=== PATIENT | female | born 1945 | race Caucasian/White ===

== ENCOUNTER 2016-05-09 16:18 | Emergency (ER) | payer BC, OTHER ==
[2016-05-09 16:23] VITALS: BP 116/60; PULSE 72; TEMP 98.4; BMI 33.3
[2016-05-09] MEDS ORDERED: KETOROLAC TROMETHAMINE 30 MG/1 ML VIAL ONE (17:01)
[2016-05-09] MEDS ORDERED: CYCLOBENZAPRINE HCL 10 MG TABLET (FP) ONE (17:01)
[2016-05-09] MEDS ORDERED: KETOROLAC TROMETHAMINE 30 MG/1 ML VIAL IM ONE (17:01)
[2016-05-09] MEDS ORDERED: CYCLOBENZAPRINE HCL 10 MG TABLET (FP) PO ONE (17:02)
--- NOTE | 2016-05-09 17:12 | PDOC ---
History of Present Illness - General Chief Complaint: Pain, Acute Stated Complaint: NECK PAIN/RT ARM PAIN Time Seen by Provider: 05/09/16 16:37 - History of Present Illness Initial Comments: 05/09/16 17:03 CHIEF COMPLAINT: neck pain HISTORY OF PRESENT ILLNESS: 71 yo F with hx of HTN presents to fast track with pain to the right side of neck x 2 days. 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 She states that initially she just felt pain to her right neck/shoulder but now the pain is radiating down her arm. She denies any chest pain, shortness of breath, or any change in sensation to her left arm. No recent travel or sick contacts. PAST MEDICAL HISTORY: as per HPI FAMILY HISTORY: Denies SOCIAL HISTORY: Denies tobacco, alcohol, illicit drug use. ALLERGIES: No known drug allergies REVIEW OF SYSTEMS General/Constitutional: Denies fever or chills. Denies weakness, weight change. HEENT: Denies change in vision. Denies ear pain or discharge. Denies sore throat. Cardiovascular: Denies chest pain or shortness of breath. Respiratory: Denies cough, wheezing, or hemoptysis. Gastrointestinal: Denies nausea, vomiting, diarrhea or constipation. Denies rectal bleeding. Genitourinary: Denies dysuria, frequency, or change in urination. Musculoskeletal: Pain to R neck. Denies joint or muscle swelling or pain. Denies neck or back pain. Skin and breasts: Denies rash or easy bruising. Neurologic: Denies headache, vertigo, loss of consciousness, or loss of sensation. PHYSICAL EXAM General Appearance: Well-appearing, appropriately dressed. No apparent distress. HEENT: EOMI, PERRLA. No conjunctival pallor. No photophobia, scleral icterus. Neck: Reproducible, marked tenderness over R rhomboid. Pain elicited when turning head to R. No tenderness to cervical spine. Supple. Trachea midline. No carotid bruit, stridor, lymphadenopathy, or thyromegaly. Respiratory/Chest: Lungs CTAB. Cardiovascular: RRR. S1, S2. Musculoskeletal/Extremities: No tenderness to thoracic or lumbar spine. Normal inspection. FROM of all extremities, normal capillary refill. Pelvis Stable. No CVA tenderness. No tenderness to extremities, pedal edema, swelling, erythema or deformity. Integumentary: Appropriate color, dry, warm. No cyanosis, erythema, jaundice or rash Neurologic: Fully oriented, alert. Appropriate mood/affect. No appreciable EOM palsy, facial droop or sensory deficit. 05/09/16 17:19 Past History - Past Medical History Allergies/Adverse Reactions: Allergies Allergy/AdvReac Type Severity Reaction Status Date / Time No Known Allergies Allergy Verified 05/09/16 16:23 Home Medications: Ambulatory Orders Aspirin [ASA -] 81 mg PO DAILY 08/05/15 Clonidine HCl [Catapres] 0.3 mg PO BID 08/05/15 Losartan Potassium 100 mg PO DAILY 08/05/15 Meloxicam [Mobic] 15 mg PO DAILY 08/05/15 Nifedipine [Nifedipine ER] 60 mg PO BID 08/05/15 Spironolactone 25 mg PO DAILY 08/05/15 Diazepam [Valium] 2 mg PO HS PRN #7 tablet MDD 1 05/09/16 Naproxen 250 mg PO BID #14 tablet 05/09/16 HTN: Yes - Surgical History Appendectomy: Yes - Immunization History Immunization Up to Date: Yes - Psycho/Social/Smoking Cessation Hx Anxiety: No Suicidal Ideation: No Smoking History: Never smoked Hx Alcohol Use: Yes (RARE) Drug/Substance Use Hx: No Substance Use Type: None *Physical Exam - Vital Signs Last Vital Signs Temp Pulse Resp BP Pulse Ox 98.4 F 72 18 116/60 95 05/09/16 16:20 05/09/16 16:20 05/09/16 16:20 05/09/16 16:20 05/09/16 16:20 Medical Decision Making - Medical Decision Making 05/09/16 17:24 71 yo F with hx of HTN presents to ED with R neck pain. -30 mg Toradol -5 mg Flexeril Patient reassessed. Reports that her pain has decreased significantly and she is ready to go home. Scripts for 2 mg valium po hs and 250 mg naproxen po bid sent to pharm. Advised patient to take medications as directed and to f/u with orthopedics if discomfort persist. Advised patient of signs and symptoms for return to ER; patient verbalized understanding and agrees to plan. *DC/Admit/Observation/Transfer Diagnosis at time of Disposition: Muscle spasm - Discharge Dispostion Disposition: HOME Condition at time of disposition: Improved Admit: No - Prescriptions Prescriptions: Naproxen 250 mg PO BID #14 tablet Diazepam [Valium] 2 mg PO HS PRN #7 tablet MDD 1 PRN Reason: Muscle Spasms - Referrals Referrals: Wilner Aguilar MD [Primary Care Provider] - Сергей Mendiola MD [Staff Physician] - - Patient Instructions Printed Discharge Instructions: DI for Cervical Muscle Strain Additional Instructions: Please take medications as prescribed. Do not drive or operate machinery while taking cyclobenzaprine. As discussed, if your symptoms persist past 2-3 days, please follow up with Dr. Mendiola. If you experience any chest pain, shortness of breath, palpitations, abdominal pain, nausea, sweating, or any new or worsening symptoms, please return to the ER.
== END 2016-05-09 18:15 | disposition home or self-care (01) ==
LOC: JERFT 16:18
PROC: 3E0233Z Introduction of Anti-inflammatory into Muscle, Percutaneous Approach (ICD-10-PCS; principal; 2016-05-09)
DX: M62.838 Other muscle spasm (principal); X50.3XXA Overexertion from repetitive movements, initial encounter; Y93.89 Activity, other specified; Y92.89 Other specified places as the place of occurrence of the external cause; Y99.0 Civilian activity done for income or pay; I10 Essential (primary) hypertension
CPT/HCPCS: 99281-25

== ENCOUNTER 2016-07-14 08:47 | Inpatient (IN) | payer BC, OTHER ==
[2016-07-02 12:26] VITALS: BMI 33.6
--- NOTE | 2016-07-14 07:50 | HP ---
Satellite [facility] - Chief Complaint Chief Complaint: left knee pain - Past Medical History Allergies/Adverse Reactions: Allergies Allergy/AdvReac Type Severity Reaction Status Date / Time No Known Drug Allergies Allergy Verified 07/02/16 12:11 - Current Medications Current Medications: Home Medications Medication Instructions Recorded Clonidine HCl [Catapres] 0.15 mg PO BID 08/05/15 Losartan Potassium 100 mg PO DAILY 08/05/15 Nifedipine [Nifedipine ER] 60 mg PO BID 08/05/15 Spironolactone 25 mg PO HS 08/05/15 Aspirin [Ecotrin] 81 mg PO DAILY 07/02/16 Cholecalciferol (Vitamin D3) 1,000 unit PO DAILY 07/02/16 [Vitamin D3 -] Duloxetine HCl [Cymbalta] 30 mg PO HS 07/02/16 Multivitamin/Iron/Folic Acid 1 each PO DAILY 07/02/16 [Centrum Women Tablet] Nebivolol [Bystolic -] 5 mg PO HS 07/02/16 Nitrofurantoin Monohyd/M-Cryst 100 mg PO BID 07/02/16 [Macrobid -] Satellite Physical Exam - Physical Examination General Appearance: Well Nourished, Well Developed, Alert & Oriented x3 ENT: Clear Lung: Normal air movement Heart: Regular rate & rhythm Extremities: Other (left knee- + swelling, + ttp, decr rom, nvi xrays show severe tricompartmental djd) Neurological: Intact, Alert, Oriented Satellite Impression/Plan - Impression/Plan Impression: left knee djd Operative Procedure: left ned tkr Date to be Performed: 07/14/16
[2016-07-14] MEDS ORDERED: CELECOXIB 200 MG CAPSULE PO ONE (09:14)
[2016-07-14] MEDS ORDERED: GABAPENTIN 300 MG CAPSULE (FP) PO ONE (09:14)
[2016-07-14] MEDS ORDERED: TRANEXAMIC ACID 1000 MG/10 ML VIAL IVPUSH ONE (09:14)
[2016-07-14] MEDS ORDERED: oxyCODONE HCL 10 MG SUSTAINED ACTING TABLET PO ONE (09:14)
[2016-07-14] MEDS ORDERED: CEFAZOLIN 2 GM in DEXTROSE 5%-WATER - 50 ML IVPB ONE (09:14)
[2016-07-14] MEDS ORDERED: ROPIVACAINE HCL 0.5% 30ML VIAL ONE (11:04)
[2016-07-14] MEDS ORDERED: MIDAZOLAM HCL 2 MG/2 ML SINGLE DOSE VIAL ONE (11:04)
[2016-07-14] MEDS ORDERED: DEXAMETHASONE SOD PHOSPHATE/PF 10 MG/ML SDV ONE (11:05)
[2016-07-14] MEDS ORDERED: ceFAZolin SODIUM 1 GM VIAL ONE ×2 (11:51→13:02)
[2016-07-14] MEDS ORDERED: VANCOMYCIN 1,000 MG VIAL (RESTRICTED TO ID ONLY) ONE (11:51)
[2016-07-14] MEDS ORDERED: TRANEXAMIC ACID 1000 MG/10 ML VIAL ONE (13:02)
[2016-07-14] MEDS ORDERED: ONDANSETRON 4 MG/2 ML VIAL ONE (13:14)
[2016-07-14] MEDS ORDERED: ROPIVACAINE 0.2% 400ML 400 ML ML NR ONE (14:02)
[2016-07-14] MEDS ORDERED: oxyCODONE HCL 5 MG TABLET PO PRN (14:02)
[2016-07-14] MEDS ORDERED: VANCOMYCIN 1,000 MG VIAL (RESTRICTED TO ID ONLY) IVPB ONE (14:21)
[2016-07-14] MEDS ORDERED: ONDANSETRON 4 MG/2 ML VIAL IVPB PRN (14:44)
[2016-07-14] MEDS ORDERED: MAGNESIUM HYDROX 2400MG/30ML ORAL SUSPENSION 30 ML CUP PO PRN (14:44)
[2016-07-14] MEDS ORDERED: MAG HYDROX/AL HYDROX/SIMETH 30 ML UNIT-DOSE CUP PO PRN (14:44)
[2016-07-14] MEDS ORDERED: LACTATED RINGERS SOLUTION 1,000 ML IV SCH (14:45)
--- NOTE | 2016-07-14 14:51 | OP ---
Operative Note - Note: Operative Date: 07/14/16 (jen) Pre-Operative Diagnosis: left knee djd Operation: left ned tkr Post-Operative Diagnosis: Same as Pre-op Surgeon: Сергей Mendiola Health Advocate: Abdirashid Cardona Anesthesiologist/HOT DIE PRESS OPERATOR: Radha Robins Anesthesia: Spinal, Local Specimens Removed: bone fragments Estimated Blood Loss (mls): 50 (tourniquet) Operative Report Dictated: Yes
[2016-07-14] MEDS ORDERED: ACETAMINOPHEN 325 MG TABLET (FP) ONE (15:37)
[2016-07-14] MEDS: ACETAMINOPHEN 325 MG TABLET (FP) PO SCH ×2 (15:45→15:55)
[2016-07-14] MEDS: oxyCODONE HCL 5 MG TABLET PO PRN ×3 (17:08→21:47)
--- NOTE | 2016-07-14 18:18 | SPEC ---
DATE OF SURGERY: 07/14/2016 OPERATION: Left total knee replacement with robotic-assisted navigation (MAKOplasty). PREOPERATIVE DIAGNOSIS: Degenerative joint disease, left knee. POSTOPERATIVE DIAGNOSIS: Degenerative joint disease, left knee. SURGEON: Сергей Mendiola M.D. TAKE OFF WORKER: Mikel Jimenez ANESTHESIA: Regional and spinal. CLOSURE: A Triathlon knee system with a 3 femur, a 3 tibia, a 9 polyethylene, a 35 patella. A number 1 Vicryl fascia, 0 and 2-0 for subcutaneous, 3-0 Monocryl subcuticular with skin glue for skin, 4-0 undyed Vicryl for pin sites. ESTIMATED BLOOD LOSS: Negligible. TOURNIQUET TIME: Approximately 75 minutes. COMPLICATIONS: None CONDITION: To recovery room in stable condition. DESCRIPTION OF PROCEDURE: Patient was taken to the operating room on July 14, 2016. Regional and spinal anesthesia were administered by the anesthesiologist. IV antibiotics and TXA were administered prophylactically prior to the case. A well-padded pneumatic tourniquet was placed on the left proximal thigh. The left lower extremity was prepped and draped in the usual sterile fashion. An approximately 12-cm midline incision centered over the patella was incised. Hemostasis was achieved with Bovie cautery. Sharp dissection was carried down to the level of the extensor mechanism the procedure. The medial parapatellar arthrotomy was then performed. The patella was inverted and the knee was flexed up to 90 degrees. Subperiosteal dissection was performed on the anteromedial proximal tibia until the knee was able to be brought forward. This was facilitated by taking the ACL, the PCL, and the medial and lateral menisci. A checkpoint was malleted into the medial femoral condyle and into the anteromedial proximal tibia. Through two small stab incisions in the mid femur and two in the mid tibia, two bicortical pins were drilled, achieving excellent height. Two of these pins were attached to the navigation arrays. The knee was then registered with the navigation device by rotating the hip to ascertain the center of rotation of the hip with points on both the medial and lateral malleoli and multiple points on both the femur and on the tibia. Excellent registration was confirmed by "popping the bubbles". At this time, the osteophytes on the edges of the proximal tibia both medially and laterally, as well as on the medial lateral femoral condyles underneath the collateral ligaments were debrided. The knee was stressed in extension and in flexion to confirm good gaps. The virtual positions of the components were then optimized in order to have a balanced knee, both in extension and in 90 degrees of flexion. The sizes of the components were also optimized to get good coverage over both the tibia and the femur and to produce equal gaps in extension and flexion with the appropriate amount of external rotation of the femur, the appropriate amount of flexion of the femoral component and the appropriate slope on the tibial component. At this time, the robot was brought into the field and registered. The robot was used to cut the proximal tibia and to make all the cuts on the distal femur. The bone was then removed. A spacer block in extension and flexion was used to confirm equal balancing of the component in both extension and 90 degrees of flexion. The box for the posterior cruciate sacrificing component was then performed and a trial component on the femur and tibia was applied. The femoral component was clipped into place with the appropriate external rotation. This was confirmed by the navigation device, ensuring the appropriate position of the tibial component on the proximal tibia. The patella was calipered for thickness and osteotomized at the appropriate level. A lollipop was used to drill the three lugholes in the patella and then a trial component was applied. The knee was taken through a range of motion and found to have excellent tracking of the patella from full extension to full flexion, with good stability, varus/valgus throughout range of motion. The trial components were then removed. Before removing the tibial tray, the keyhole was made. The knee was then thoroughly irrigated with antibiotic irrigation. The real components were then cemented in, using modern generation cement techniques with antibiotic cement and pressurization. After the cement was hardened, the knee was thoroughly inspected to remove all excess cement. The real polyethylene component was then clipped into place. Again, range of motion, stability and tracking were found to be excellent throughout. The knee was then pulse antibiotic irrigated and dried. Vancomycin powder was placed into the knee. The checkpoints were removed. The medial parapatellar arthrotomy was then closed using number 1 Vicryl interrupted suture. The knee was again taken through range of motion and found to have no undue tension on the repair and good tracking throughout. The subcutaneous was closed with 0 and 2-0 Vicryl and 3-0 Monocryl subcuticular for skin with skin glue. The pins were removed in the femur and the tibia and pulse antibiotic irrigated and closed with 4-0 undyed Vicryl. Sterile Aquacel dressing followed by a Fleming dressing was applied. The tourniquet was then deflated. One more dose of TXA was administered at the end of the case. The patient was awakened from anesthesia and transferred to the recovery room in stable condition. X-rays revealed good position of the components. There were no complications. Estimated blood loss was negligible. Total tourniquet time was approximately 75 minutes. Jennifer [id number]
[2016-07-14] MEDS: CEFAZOLIN 2 GM/D5W 50 ML IVPB SCH (20:16)
[2016-07-14] MEDS: oxyCODONE HCL 10 MG SUSTAINED ACTING TABLET PO SCH ×2 (21:35→21:46)
[2016-07-14] MEDS: DULoxetine HCL 30 MG CAPSULE.DR (FP) PO SCH ×2 (21:39→21:47)
[2016-07-14] MEDS: NEBIVOLOL 5 MG TABLET (FP) PO SCH (21:47)
[2016-07-14] MEDS: SPIRONOLACTONE 25 MG TABLET (FP) PO SCH (21:48)
[2016-07-14] MEDS: SENNOSIDES/DOCUSATE COMBO (SENNA PLUS) TABLET (UD) PO SCH (21:48)
[2016-07-14] MEDS: GABAPENTIN 300 MG CAPSULE (FP) PO SCH (21:48)
[2016-07-14] MEDS ORDERED: CLONIDINE HCL 0.15 MG PO SCH (22:00)
[2016-07-14] MEDS ORDERED: PATIENT'S OWN MEDICATION (NON-FORMULARY) (Nifedipine [Nifedipine Er] 60 MG) PO SCH (22:00)
[2016-07-15] MEDS: NIFEdipine E.R 60 MG TABLET (UD) PO SCH ×3 (00:10→21:44)
[2016-07-15] MEDS: cloNIDine HCL 0.1 MG TABLET PO SCH ×3 (00:10→21:43)
[2016-07-15] MEDS: CEFAZOLIN 2 GM/D5W 50 ML IVPB SCH (04:01)
[2016-07-15] MEDS: ACETAMINOPHEN 325 MG TABLET (FP) PO SCH ×4 (04:02→20:23)
[2016-07-15] MEDS: oxyCODONE HCL 5 MG TABLET PO PRN (05:37)
[2016-07-15] MEDS: ASPIRIN 325 MG TABLET PO SCH (07:50)
--- NOTE | 2016-07-15 08:04 | PN ---
Progress Note (short form) - Note Progress Note: Ortho Pt seen and examined s/p left ned tkr pod #1 Selected Entries 07/15/16 06:00 Temperature 98.3 F Pulse Rate 60 Respiratory 19 Rate Blood Pressure 126/50 dressing c/d/i, calf soft, nt rom 0-60, nvi a/p PT dvt ppx pain control d/c home tomorrow if stable
[2016-07-15 08:28] LABS: MCH 30.2 pg (25.7-33.7); MCHC 34.3 g/dl (32.0-36.0); MEAN PLT VOLUME 9.6 fl (7.5-11.1); PLATELET COUNT 215 K/MM3 (134-434); RDW 12.2 % (11.6-15.6); WHITE BLOOD COUNT 12.3 K/mm3 (4.0-10.8)
[2016-07-15] MEDS: LOSARTAN POTASSIUM 50 MG TABLET (FP) PO SCH (09:14)
[2016-07-15] MEDS: SENNOSIDES/DOCUSATE COMBO (SENNA PLUS) TABLET (UD) PO SCH ×2 (09:15→21:44)
[2016-07-15] MEDS: MULTIVITAMINS (DAILY MVI) TABLET (FP) PO SCH (09:15)
[2016-07-15] MEDS: oxyCODONE HCL 10 MG SUSTAINED ACTING TABLET PO SCH ×2 (09:16→21:44)
[2016-07-15] MEDS: PANTOPRAZOLE 40 MG TABLET (FP) PO SCH (09:16)
[2016-07-15] MEDS: GABAPENTIN 300 MG CAPSULE (FP) PO SCH ×2 (09:16→21:44)
[2016-07-15] MEDS ORDERED: PATIENT'S OWN MEDICATION (NON-FORMULARY) (Multivitamin/Iron/Folic Acid [Centrum Women Tabl PO SCH (10:00)
[2016-07-15] MEDS ORDERED: MULTIVITAMINS (DAILY MVI) TABLET (FP) PO SCH (10:00)
[2016-07-15] MEDS ORDERED: cloNIDine HCL 0.1 MG TABLET PO SCH (10:00)
[2016-07-15] MEDS ORDERED: PATIENT'S OWN MEDICATION (NON-FORMULARY) (Losartan Potassium [Losartan Potassium] 100 MG) PO SCH (10:00)
[2016-07-15] MEDS: SPIRONOLACTONE 25 MG TABLET (FP) PO SCH (21:42)
[2016-07-15] MEDS: NEBIVOLOL 5 MG TABLET (FP) PO SCH (21:43)
[2016-07-15] MEDS: DULoxetine HCL 30 MG CAPSULE.DR (FP) PO SCH (21:44)
[2016-07-16] MEDS: ACETAMINOPHEN 325 MG TABLET (FP) PO SCH ×2 (05:06→08:20)
[2016-07-16] MEDS: oxyCODONE HCL 5 MG TABLET PO PRN (05:40)
[2016-07-16 06:32] VITALS: BP 134/42; PULSE 68; TEMP 98.5
[2016-07-16] MEDS: ASPIRIN 325 MG TABLET PO SCH (08:20)
[2016-07-16 08:56] LABS: MEAN CELL VOLUME 88.2 fl (80-96); MEAN PLT VOLUME 10.2 fl (7.5-11.1); PLATELET COUNT 201 K/MM3 (134-434); RDW 12.3 % (11.6-15.6); WHITE BLOOD COUNT 13.1 K/mm3 (4.0-10.8)
--- NOTE | 2016-07-16 09:18 | PN ---
Progress Note (short form) - Note Progress Note: Ortho Pt seen and examined s/p left ned tkr pod #2 Selected Entries 07/16/16 06:00 Temperature 98.5 F Pulse Rate 68 Respiratory 18 Rate Blood Pressure 134/42 Laboratory Tests 07/16/16 08:30 WBC 13.1 H Hgb 10.6 L Hct 31.2 L Plt Count 201 dressing c/d/i, calf soft, nt rom 0-60, nvi a/p PT dvt ppx pain control d/c home today f/u in 1 week
--- NOTE | 2016-07-16 09:19 | DS ---
Physical Examination Vital Signs: Vital Signs Temperature 98.5 F 07/16/16 06:00 Pulse Rate 68 07/16/16 06:00 Respiratory Rate 18 07/16/16 06:00 Blood Pressure 134/42 07/16/16 06:00 O2 Sat by Pulse Oximetry (%) 94 L 07/16/16 06:00 Labs: CBC, BMP 07/16/16 08:30 Discharge Summary Reason For Visit: OSTEOARTHRITIS Procedures: Principal: s/p left ned tkr Hospital Course: admitted for elective left ned tkr, uneventful post-op, stable for d/c Condition: Good - Instructions Diet, Activity, Other Instructions: Post-op Instructions-Total Knee Replacement Call the office for a follow-up appointment in 1 week - [phone] Aspirin 325mg daily for 6 weeks. Pain medication was sent into your pharmacy. Apply Graduated Compression Stockings (TEDs) to both lower extremities- remove daily for hygiene ONLY Apply Sequential Compression Device (SCDs) to both Lower extremities remove for PT and hygiene ONLY Apply cold packs to affected area for 15 minutes every 2 hours. Physical Therapist will come to your home for the first 5 days. You will be set up with outpatient PT at your first post-operative visit. Patient may ambulate as tolerated-encourage self care (at least every 2-3 hours while awake) with walker or cane Maintain Aquacel (waterproof) dressing to operative wound (will be removed by surgeon at first office visit) Shower with Aquacel dressing in place-if Aquacel integrity compromised, remove and apply dry sterile dressing and notify Orthopedist. DO NOT SHOWER unless Orthopedists approves without Aquacel dressing CONTACT THE OFFICE FOR ANY CHANGE IN YOUR CONDITION (for example-fever greater than 102 degrees,excessive bleeding from operative site, purulent drainage, severe swelling or pain) GO TO THE EMERGENCY ROOM IF THERE IS A MEDICAL EMERGENCY Knee Precautions: * Keep a rolled towel under affected heel while in bed or chair (to keep knee in extension) * Keep affected leg elevated except during mealtimes * DO NOT PLACE PILLOW UNDER AFFECTED KNEE * If you have any questions, please do not hesitate to call the office - . Referrals: Сергей Mendiola MD [Staff Physician] - Disposition: VNS/HOME HEALTH CARE - Home Medications Comprehensive Discharge Medication List: Ambulatory Orders Clonidine HCl [Catapres] 0.15 mg PO BID 08/05/15 Losartan Potassium 100 mg PO DAILY 08/05/15 Nifedipine [Nifedipine ER] 60 mg PO BID 08/05/15 Spironolactone 25 mg PO HS 08/05/15 Cholecalciferol (Vitamin D3) [Vitamin D3 -] 1,000 unit PO DAILY 07/02/16 Duloxetine HCl [Cymbalta] 30 mg PO HS 07/02/16 Multivitamin/Iron/Folic Acid [Centrum Women Tablet] 1 each PO DAILY 07/02/16 Nebivolol [Bystolic -] 5 mg PO HS 07/02/16 Aspirin [ASA -] 325 mg PO DAILY@0800 tablet 07/14/16 Oxycodone HCl/Acetaminophen [Percocet 5-325 mg Tablet -] 1 - 2 tab PO Q6H #50 tab MDD 8 07/14/16
[2016-07-16] MEDS: NIFEdipine E.R 60 MG TABLET (UD) PO SCH (09:32)
[2016-07-16] MEDS: LOSARTAN POTASSIUM 50 MG TABLET (FP) PO SCH (09:33)
[2016-07-16] MEDS: cloNIDine HCL 0.1 MG TABLET PO SCH (09:33)
[2016-07-16] MEDS: GABAPENTIN 300 MG CAPSULE (FP) PO SCH (09:33)
[2016-07-16] MEDS: SENNOSIDES/DOCUSATE COMBO (SENNA PLUS) TABLET (UD) PO SCH (09:34)
[2016-07-16] MEDS: oxyCODONE HCL 10 MG SUSTAINED ACTING TABLET PO SCH (09:34)
[2016-07-16] MEDS: MULTIVITAMINS (DAILY MVI) TABLET (FP) PO SCH (09:35)
[2016-07-16] MEDS: PANTOPRAZOLE 40 MG TABLET (FP) PO SCH (09:35)
--- NOTE | 2016-07-20 13:52 | PATH ---
Surgical Pathology Report Patient Name: MICKEY SANCHEZ Med. Rec. #: [id number] /Age/Gender: 1945 (Age: 71) / F Account: [id number] Location: ON LICENSE OF [facility] MED-SURG Taken: 07/14/2016 Received: 07/14/2016 Reported: 07/20/2016 Physicians: Сергей Mendiola M.D. Specimen(s) Received LEFT KNEE BONE AND TISSUE Clinical History Left knee osteoarthritis Final Diagnosis KNEE BONE AND TISSUE, LEFT, TOTAL KNEE REPLACEMENT: DEGENERATIVE JOINT DISEASE. Electronically Signed Tari Tse M.D. Gross Description Received in formalin labeled "left knee bone and tissue," is a 12.5 x 10.0 x 2.0 cm aggregate of multiple albarado-yellow, irregular portions of bone and soft tissue. The tibial plateau measures 7.2 x 4.8 x 1.7 cm. There is a 1.8 cm in greatest dimension area of eburnation present. The remaining articular surfaces are albarado-yellow and focally granular. The underlying trabecular bone is yellow and hard. Railroad Car Cleaner sections are submitted in one cassette, following decalcification. /07/15/2016 saudi07/15/2016
== END 2016-07-16 14:45 | disposition home health service (06) | DRG 470 ==
LOC: FM/S 08:47
PROVIDERS: ADMIT Orthopaedic Surgery; ATTEND Orthopaedic Surgery
PROC: 8E0Y0CZ Robotic Assisted Procedure of Lower Extremity, Open Approach (ICD-10-PCS; 2016-07-14)
PROC: 0SRD0J9 Replacement of Left Knee Joint with Synthetic Substitute, Cemented, Open Approach (ICD-10-PCS; principal; 2016-07-14 13:09)
DX: M17.12 Unilateral primary osteoarthritis, left knee (principal)
CPT/HCPCS: 36415; 73560-TC-LT; 85027; 88304-TC; 88311-TC; 94010; 94760; 97116-GP; 97162; J0735

== ENCOUNTER 2017-05-29 16:09 | Emergency (ER) | payer BC, OTHER ==
[2017-05-29 16:24] VITALS: BMI 33.3
--- NOTE | 2017-05-29 17:10 | PDOC ---
History of Present Illness - General Chief Complaint: Chest Pain Stated Complaint: CHEST PAIN Time Seen by Provider: 05/29/17 17:04 History Source: Patient - History of Present Illness Initial Comments: 05/29/17 17:35 Patient is a 72 year old female with a PMH of HTN who presents to our ED c/o B/ L arm and chest pain. Patient states the pain is intermittent, "achy," 7/10, with some associated B/L hand numbness and tingling and no identifiable triggering or relieving factors. Patient notes the pain has been occurring intermittently for 2-3 months, however today she noted some hot and cold flashes which prompted her visit to the ED. Patient further notes she works as a branch customer service representative for a [employer] and she completes a lot of paperwork requiring a lot of supination and pronation of her arms. Patient's was most recently evaluated by her PMD in April 2017 at which time she evaluated for her general medical health including her chest pain and was told that the numbness and tingling was likely 2/2 to her sleep position. Denies any MCCLELLAN or previous cardiac stress testing. Patient denies any shortness of breath,fevers/chills, nausea/vomiting, constipation/diarrhea. NKDA Surgical: L knee replacement, appendectomy, tonsillectomy PMD: Dr. Aguilar Social: denies nicotine, denies alcohol, denies recreational drugs Past History - Past Medical History Allergies/Adverse Reactions: Allergies Allergy/AdvReac Type Severity Reaction Status Date / Time No Known Drug Allergies Allergy Verified 05/29/17 16:24 Home Medications: Ambulatory Orders Clonidine HCl [Catapres] 0.15 mg PO BID 08/05/15 Losartan Potassium 100 mg PO DAILY 08/05/15 Nifedipine [Nifedipine ER] 60 mg PO BID 08/05/15 Spironolactone 25 mg PO HS 08/05/15 Cholecalciferol (Vitamin D3) [Vitamin D3 -] 1,000 unit PO DAILY 07/02/16 Duloxetine HCl [Cymbalta] 30 mg PO HS 07/02/16 Nebivolol [Bystolic -] 5 mg PO HS 07/02/16 Atorvastatin Ca [Lipitor] 20 mg PO HS 05/29/17 Cholecalciferol (Vitamin D3) [Vitamin D3] 1,000 unit PO DAILY 05/29/17 Multivit-Min/Iron/Folic/Lutein [Centrum Silver Women Tablet] 1 each PO DAILY Anemia: No Asthma: No Cancer: No Cardiac Disorders: No CVA: No COPD: No CHF: No DVT: No Dementia: No Diabetes: No GI Disorders: No Disorders: Yes (RECENT UTI- COMPLETED MACROBID) HTN: Yes Hypercholesterolemia: No Liver Disease: No Seizures: No Thyroid Disease: No - Surgical History Abdominal Surgery: No Appendectomy: Yes Cardiac Surgery: No Cholecystectomy: No Lung Surgery: No Neurologic Surgery: No Orthopedic Surgery: Yes (LEFT KNEE ARTHROSCOPY,RIGHT SHOULDER SX 1993) - Immunization History Immunization Up to Date: Yes - Suicide/Smoking/Psychosocial Hx Smoking History: Never smoked Have you smoked in the past 12 months: No If you are a former smoker, when did you quit?: Information on smoking cessation initiated: No Hx Alcohol Use: Yes (RARE) Drug/Substance Use Hx: No Substance Use Type: None Hx Substance Use Treatment: No Review of Systems - Review of Systems Constitutional: No: Chills, Fever HEENTM: No: Recent change in vision Respiratory: No: Cough, Shortness of Breath Cardiac (ROS): Yes: Chest Pain. No: Lightheadedness, Palpitations, Syncope ABD/GI: No: Constipated, Diarrhea, Nausea, Vomiting : No: Burning, Dysuria *Physical Exam - Vital Signs Last Vital Signs Temp Pulse Resp BP Pulse Ox 98.1 F 66 18 116/58 99 05/29/17 16:21 05/29/17 16:21 05/29/17 16:21 05/29/17 16:21 05/29/17 16:21 - Physical Exam Comments: 05/29/17 18:35 GENERAL: Awake, alert, and fully oriented, in no acute distress HEAD: No signs of trauma EYES: PERRLA, EOMI, sclera anicteric, conjunctiva clear ENT: Auricles normal inspection, hearing grossly normal, nares patent, oropharynx clear without exudates. Moist mucosa NECK: Nontender, no stepoffs, Normal ROM, supple, no lymphadenopathy, JVD, or masses LUNGS: Breath sounds equal, clear to auscultation bilaterally. No wheezes, and no crackles HEART: Regular rate and rhythm, normal S1 and S2, no murmurs, rubs or gallops ABDOMEN: Soft, nontender, normoactive bowel sounds. No guarding, no rebound. No masses EXTREMITIES: Normal range of motion, no edema. No clubbing or cyanosis. No cords, erythema, or tenderness NEUROLOGICAL: Cranial nerves II through XII intact. 5/5 strength and sensation in all extremities, Normal speech, normal gait, normal cerebellar function SKIN: Warm, Dry, normal turgor, no rashes or lesions noted. ED Treatment Course - LABORATORY CBC & Chemistry Diagram: 05/29/17 17:34 05/29/17 17:34 Medical Decision Making - Medical Decision Making 05/29/17 18:18 72 year old female with chest pain. Pain reproducible on PE. Likely muscoskeletal, will r/o ACS given RF of HTN, also DDx includes pericarditis, pneumonia, pleural effusion, pneumothorax, gastritis/GERD. 05/29/17 18:36 ECG shows HR 64, no deviations, normal intervals, poor R wave progression V1- V6. 05/29/17 19:02 CMP significant -- for mild MICHAEL Cr 1.4 likely 2/2 dehydration. 05/29/17 19:23 CXR shows no consolidation/infiltrate, mildly increased congestion, no cardiomegaly. Patient notes she often uses [employer] with relieve of her chest pain 05/29/17 19:26 At this time patient has been observed for 3 hours with complete resolution of symptoms. Heart Score 2. Low clinical suspicion of acute coronary event. Will discharge home with return precautions and close PMD follow-up. Case d/w patient's PMD, Dr. Aguilar, agrees with d/c home and outpatient f/ u. *DC/Admit/Observation/Transfer Diagnosis at time of Disposition: Chest pain - Discharge Dispostion Disposition: HOME Condition at time of disposition: Good Admit: No - Referrals Referrals: Wilner Aguilar MD [Primary Care Provider] - - Patient Instructions Printed Discharge Instructions: DI for Atypical Chest Pain Additional Instructions: You were evaluated today for chest pain. All of your labs and imaging showed no concerning findings. Please follow-up with your primary care doctor in the next 48 hours. Return to the Emergency Department for any new/worsening/concerning symptoms. - Post Discharge Activity
[2017-05-29 17:44] LABS: BASO % 0.6 % (0-2.0); EOS % 1.5 % (0-4.5); LYMPH % 28.3 % (8-40); MCH 30.2 pg (25.7-33.7); MCHC 34.2 g/dl (32.0-36.0); MEAN CELL VOLUME 88.2 fl (80-96); MEAN PLT VOLUME 9.3 fl (7.5-11.1); MONO % 8.1 % (3.8-10.2); NEUT % 61.5 % (42.8-82.8); PLATELET COUNT 234 K/MM3 (134-434); RBC 3.97 M/mm3 (3.60-5.2); RDW 13.4 % (11.6-15.6); WHITE BLOOD COUNT 6.2 K/mm3 (4.0-10.0)
--- NOTE | 2017-05-29 17:51 | PDOC ---
Attending Attestation - Medical Decision Making 7:43pm Call placed to Dr. Wilner Aguilar's answering service, case was discussed with resident. <YueAbhilashjessicajose armando - Last Filed: 05/29/17 19:46> - Resident Resident Name: Becky Gibbons - ED Attending Attestation I have performed the following: I have examined & evaluated the patient, The case was reviewed & discussed with the resident, I agree w/resident's findings & plan, Exceptions are as noted - HPI HPI: 05/29/17 18:38 MS Poe is a 72 yo F with a h/o of HTN who presents to our ED c/o B/L arm and chest pain. 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 She has reported this to her primary care physician, her symptoms typically last a day and resolved. While at work today she developed midsternal chest pain. Patient states the pain is intermittent, "achy," 7/10, with some associated B/L hand numbness and tingling and no identifiable triggering or relieving factors. Pain was associated with hot and cold flashes which made her concerned. She went home, went to bed, slept for approximately 2 hours. When she continued to have these symptoms, she decided to come to the ER for evaluation. No prior episodes like this. Patient rarely exerts herself, states she has no exertional chest pain. Patient states she's not previously had a stress test Patient denies any shortness of breath,fevers/chills, nausea/vomiting, constipation/diarrhea -- - Physicial Exam PE: 05/29/17 18:42 GENERAL: The patient is in no acute distress. HEAD: Normal EYES: PERRLA, EOMI, sclera anicteric, conjunctiva clear. ENT: Ears normal, nares patent, oropharynx clear without exudates. Moist mucous membranes. NECK: Normal range of motion, supple LUNGS: Breath sounds equal, clear to auscultation bilaterally. No wheezes, and no crackles. HEART:Regular rate and rhythm, normal S1 and S2 without murmur, rub or gallop. ABDOMEN: Soft, nontender, normoactive bowel sounds. No guarding, no rebound. No masses palpable. EXTREMITIES: Normal range of motion NEUROLOGICAL: Cranial nerves II through XII grossly intact. Normal speech. No focal neurological deficits. MUSCULOSKELETAL: Back non-tender to palpation, no CVA tenderness SKIN: Warm, Dry, normal turgor, no rashes or lesions noted. - Medical Decision Making 05/29/17 18:42 72-year-old female presents emergency department with chest pain. She has a prior history of hypertension. No prior cardiac disease. Frontal diagnoses: Acute coronary syndrome, musculoskeletal pain, pericarditis, pneumonia, pneumothorax, pleural effusion, gastritis/GERD Will do: Labs EKG Chest x-ray Will reassess 05/31/17 20:04 Laboratory Tests 05/29/17 05/29/17 05/29/17 17:34 17:34 17:34 WBC 6.2 Hgb 12.0 Hct 35.0 Plt Count 234 INR 1.01 Sodium 140 Potassium 4.6 Chloride 107 Carbon Dioxide 32 Anion Gap 1 L BUN 28 H Creatinine 1.2 H Random Glucose 92 Creatine Kinase 89 Troponin I < 0.02 B-Natriuretic Peptide 122.74 Pt states she feels better Pain had been constant since 11:30am Troponin should be positive given she presented to the ER >8 hour after the beginning of constant symptoms Trop is negative which is re assuring that this is NOT ACS Call placed to PMD He agrees with discharge Pt asked to return to the ER for any other concerns or complaints Clinical Impression: chest pain, initial presentation <Cecilia Ospina - Last Filed: 05/31/17 20:10> Attestations - Attestations 05/29/17 19:47 Documentation prepared by Gay Turner, acting as senior medical transcriptionist for Cecilia Ospina MD. <Gay Turner - Last Filed: 05/29/17 19:46>
[2017-05-29 17:57] LABS: INR 1.01 (0.82-1.09); PROTHROMBIN TIME (PATIENT) 11.4 SEC (9.98-11.88)
[2017-05-29 18:08] LABS: ALBUMIN 3.6 g/dl (3.4-5.0); ANION GAP 1 (8-16); BILIRUBIN,TOTAL 0.2 mg/dL (0.2-1.0); BLOOD UREA NITROGEN 28 mg/dL (7-18); CALCIUM 8.8 mg/dL (8.5-10.1); CHLORIDE 107 mmol/L (98-107); CO2 32 mmol/L (21-32); CREATININE 1.2 mg/dL (0.55-1.02); GLUCOSE,RANDOM 92 mg/dL (74-106); MAGNESIUM 2.1 mg/dL (1.8-2.4); POTASSIUM 4.6 mmol/L (3.5-5.1); SGOT/AST 17 U/L (15-37); SGPT/ALT 20 U/L (12-78); SODIUM 140 mmol/L (136-145); TOT PROT 6.8 g/dl (6.4-8.2)
[2017-05-29 18:11] LABS: ALK PHOS 95 U/L (45-117); N-TERMINAL BNP 122.74 pg/ml (5-125)
[2017-05-29] MEDS ORDERED: IBUPROFEN 600 MG TABLET (FP) PO ONE ×2 (18:18→18:33)
[2017-05-29 19:51] VITALS: BP 121/72; PULSE 64; TEMP 98.6
--- NOTE | 2017-05-31 12:32 | EKG ---
Test Reason : Blood Pressure : / mmHG Vent. Rate : 064 BPM Atrial Rate : 064 BPM P-R Int : 172 ms QRS Dur : 068 ms QT Int : 376 ms P-R-T Axes : 117 021 040 degrees QTc Int : 387 ms POOR DATA QUALITY, INTERPRETATION MAY BE ADVERSELY AFFECTED NORMAL SINUS RHYTHM LOW VOLTAGE QRS CANNOT RULE OUT ANTERIOR INFARCT (CITED ON OR BEFORE 17-JUL-2003) ABNORMAL ECG WHEN COMPARED WITH ECG OF 17-JUL-2003 10:16, T WAVE INVERSION NOW EVIDENT IN ANTERIOR LEADS Confirmed by SARAHI PORRAS MD ([id number]) on 05/31/2017 12:32:09 PM Referred By: Confirmed By:SARAHI PORRAS MD
== END 2017-05-29 20:01 | disposition home or self-care (01) ==
LOC: JER 16:09
DX: R07.89 Other chest pain (principal); I10 Essential (primary) hypertension; Z87.440 Personal history of urinary (tract) infections; Z96.652 Presence of left artificial knee joint; Z90.49 Acquired absence of other specified parts of digestive tract
CPT/HCPCS: 36415; 71045-TC-FY; 80053; 82550; 83735; 83880; 84484; 85025; 85610; 93005; 93010; 99285-25